=== PATIENT | female | born 1940 | race Caucasian/White ===

== ENCOUNTER 2024-08-20 18:33 | Emergency (ER) | payer MEDICARE, SELFPAY ==
[2024-08-20 18:48] VITALS: PULSE 150; O2SAT 98
[2024-08-20 18:51] VITALS: BP 162/107; PULSE 105; RESP 18; TEMP 39.4; O2SAT 92
--- NOTE | 2024-08-20 18:55 | XR_ITS ---
Examination: AP chest single view TECHNIQUE: AP portable upright chest single view Date and time: August 20, 2024, 1955 hours Comparison June 04, 2022 INDICATIONS: Coughing and fever beginning 2 days ago FINDINGS: Suspicious for early bibasilar pneumonia Mild prominence left ventricle Mildly ectatic thoracic aorta. Prominent osteopenia IMPRESSION: Suspicious for early bibasilar pneumonia
--- NOTE | 2024-08-20 18:55 | PD.EDSYNC ---
ED Syncope RME/HPI General Chief Complaint: Syncope / Near Syncope Stated Complaint: NEAR SYNCOPE Time Seen by Provider: 08/20/24 18:45 Arrival date/time: 08/20/24 18:33 RME / HPI RME / HPI narrative: Dr. Peck?s Main ED Evaluation: 84yo female with a history of dementia, CHF, HTN, aFib, DM BIBA from [facility] presents to the ED for a chief complaint of near syncope. Per EMS, patient was getting ready for dinner when she suddenly started feeling hot, dizzy, and lightheaded. Granddaughter was concerned, so she wanted the patient sent out for evaluation. EMS denies any falls, injuries or loss of consciousness. Patient denies any N/V/D, cough, runny nose or any other associated symptoms. Patient is on blood thinners, but it's unknown which one she's one. NKA. Related Data Home Medications ?Medication ?Instructions ?Recorded ?Confirmed atenolol 50 mg tablet 50 mg PO QDAY 06/04/22 06/04/22 atorvastatin 40 mg tablet 50 mg PO HS 06/04/22 06/04/22 dabigatran etexilate 110 mg 110 mg PO BID 06/04/22 06/04/22 capsule (Pradaxa) furosemide 20 mg tablet (Lasix) 20 mg PO QDAY 06/04/22 06/04/22 lisinopril 10 mg tablet 10 mg PO QDAY 06/04/22 06/04/22 methimazole 5 mg tablet 2.5 mg PO DAILY 06/04/22 06/04/22 mirtazapine 15 mg tablet (Remeron) 15 mg PO QDAY 06/04/22 06/04/22 tramadol 100 mg tablet 100 mg PO BID 06/04/22 06/04/22 Previous Rx's ?Medication ?Instructions ?Recorded acetaminophen 500 mg capsule 1,000 mg (2 x 500 mg) PO Q6H PRN 08/20/24 fever #30 caps Allergies Allergy/AdvReac Type Severity Reaction Status Date / Time No Known Allergies Allergy Verified 08/20/24 18:51 Review of Systems Review of Systems Systems Reviewed: All systems reviewed, normal except as documented Past Medical History Past Medical History NEUROLOGIC: Positive Dementia CARDIAC: Positive Cardiac Disorders, Atrial Fibrillation and Congestive Heart Failure RESPIRATORY: Negative Chronic Obstructive Pulmonary Disease (COPD) or Asthma GENITOURINARY: Negative Renal Disease ENDOCRINE: Positive Diabetes Mellitus Type 2; Negative Diabetes Mellitus Type 1 HEMATOLOGIC: Negative Sickle Cell Disease Social History SMOKING STATUS: Never smoker SUBSTANCE USE: does not use ED Exam Narrative Physical exam: GENERAL APPEARANCE: alert and oriented x 4, well-developed, well-nourished, no acute distress VITALS: All vitals were reviewed and the pulse ox is 95% on room air, which is normal according to my interpretation. HEENT: Normocephalic, atraumatic; pupils equal, round, reactive to light; EOMI; mucous membranes pink, moist; oropharynx clear NECK: Supple LUNGS: CTABL; no wheezes, no rales, no rhonchi HEART: Regular rate, regular rhythm; normal S1, S2; no murmurs ABDOMEN: non distended; normal BS; soft, no tenderness, no guarding, no rebound; no masses, no organomegaly, no hernia BACK: no CVA tenderness EXTREMITIES: atraumatic; no edema NEUROLOGIC: awake; alert and oriented x4; cranial nerves II-XII grossly intact; no focal sensory or motor deficits PSYCHIATRIC: appropriate mood and affect SKIN: warm, dry, normal color; no rashes Course Course Course Narrative: CXR is ordered for determining the etiology of fever. Quality Measures Current suspected stage: ruled out Possible source: pulmonary, genitourinary and skin/soft tissue Blood cultures ordered: yes Antibiotic ordered: Yes Pertinent labs: 08/20/24 19:42 Lactic Acid 1.6 mMol/L (0.4-2.0) Procalcitonin 0.09 ng/ml (0.0-0.49) sepsis Orders Category Date Time Status Senior Relationship Manager STAT Care 08/20/24 18:55 Active Continuous Pulse Oximetry STAT Care 08/20/24 18:55 Completed EKG (ED ONLY) *Do not use* NOW Care 08/20/24 18:55 Completed Insert IV NOW Care 08/20/24 18:55 Active NPO STAT Care 08/20/24 18:55 Active Strict Intake and Output Routine Care 08/20/24 18:55 Ordered EKG (ED Only) Stat Exams 08/20/24 18:55 Ordered XR chest 1V portable Stat Exams 08/20/24 18:55 Completed Arterial Blood Gas Stat Lab 08/20/24 20:33 Completed B-Type Natriuretic Peptide Stat Lab 08/20/24 19:42 Completed Blood Culture (Lab) Stat Lab 08/20/24 19:56 Received CBC Stat Lab 08/20/24 19:42 Completed Comprehensive Metabolic Panel Stat Lab 08/20/24 19:42 Completed LDH (Lactate Dehydrogenase) Stat Lab 08/20/24 19:42 Completed Lactate (Lactic Acid) Stat Lab 08/20/24 19:42 Completed Lipase Stat Lab 08/20/24 19:42 Completed Magnesium Stat Lab 08/20/24 19:42 Completed Partial Thromboplastin Time Stat Lab 08/20/24 19:42 Completed Phosphorous Stat Lab 08/20/24 19:42 Completed Procalcitonin Stat Lab 08/20/24 19:42 Completed Prothrombin Time with INR Stat Lab 08/20/24 19:42 Completed Troponin I Stat Lab 08/20/24 19:42 Completed Urinalysis Stat Lab 08/20/24 21:27 Completed Urine Culture Stat Lab 08/20/24 21:27 Received Acetaminophen Ivpb [Ofirmev Inj] Med 08/20/24 18:59 Discontinued 1,000 mg in 100 ml IV X1 POTASSIUM CHL 10 mEq IVPB [Kcl Ivpb] Med 08/20/24 21:17 Discontinued 10 meq in 100 ml IV Q1H Potassium Chloride [K-Dur] Med 08/20/24 21:17 Discontinued 40 meq PO X1 ONE Sodium Chloride 0.9% 1000 ml [Ns] 1,000 ml Med 08/20/24 18:57 Discontinued IV 999 mls/hr Sodium Chloride 0.9% 1000 ml [Ns] 1,000 ml Med 08/20/24 18:57 Discontinued IV 999 mls/hr cefTRIAXone/D5w 1gm IV premix [Rocephin/D5w 1gm IV Med 08/20/24 18:55 Discontinued premix] 1 gm in 50 ml IV X1 Vital Signs Vital signs: Vital Signs Temperature 103.0 F H 08/20/24 18:51 Pulse Rate 105 H 08/20/24 18:51 Respiratory Rate 18 08/20/24 18:51 Blood Pressure 162/107 H 08/20/24 18:51 Pulse Oximetry (%) 92 L 08/20/24 18:51 Oxygen Delivery Method Room Air 08/20/24 18:51 Syncope MDM Narrative MDM Narrative:: Scribe Attestation: 08/20/24 - I, Lyndsay Seht, am scribing for and in the presence of Dr. Peck. 1852: Sepsis alert initiated due to the patient being febrile at 103.0 and a HR of 105. Orders made at this time are congruent with ED Adult Sepsis Order List. Re-evaluation is to be completed. 2053: NS IVF infused. 2123: Sepsis reassessment performed consisting of lab review, vitals, physical exam including auscultation of heart, lungs, and visual evaluation of capillary refills, mucosal membranes and extremities. Patient met SIRS criteria however lactic, WBC, and pro brooke are all within normal range. Reassessment complete, patient is not septic. Patient data External records reviewed:: [facility] previous records (Per chart review, patient was admitted here on 06/03/22 for hypoxia.) Clinical information provided by:: patient and EMS Social determinants that could affect healthcare access:: housing (resides in assisted living) Patient has the following chronic illnesses:: dementia, CHF, HTN, aFib, DM How is presenting disease/condition affected by chronic disease/condition?: uneffected by Evaluation data The following diagnostics were reviewed and interpreted by me:: lab results, radiology exam(s) and EKG tracing(s) Lab and/or radiology exams considered but not ordered:: none Interpretation Summary: Bedside COVID is positive, Bedside Influenza is negative, CBC is normal, ABG is unremarkable, CMP is normal, Lactic Acid is normal, BNP is 162, Procalcitonin is normal, UA is unremarkable, according to my interpretation. CXR shows, no fractures, normal sharp diaphragmatic edge, tortuous trachea, no infiltrates, according to my interpretation. EKG done at 1928, aFib, rate of 102, left axis deviation, T wave inversions in V3-V6, Q waves in V1-V3, no STEMI, according to my interpretation. Medications / Prescriptions Medications or Prescriptions considered but not ordered:: none Medication administrations:: Medication Administration History Discontinued Medications Ceftriaxone Sodium/Dextrose (Rocephin/D5w 1gm Iv Premix) 1 gm in 50 mls @ 100 mls/hr IV X1 ONE Stop: 08/20/24 19:24 Last Infusion: 08/20/24 20:45 Dose: Infused Documented By: Admin: 08/20/24 20:12 Dose: 100 mls/hr Documented By: ALO Sodium Chloride (Ns) 1,000 mls @ 999 mls/hr IV .Q1H1M ONE Stop: 08/20/24 19:57 Last Infusion: 08/20/24 20:54 Dose: Infused Documented By: Admin: 08/20/24 19:51 Dose: 999 mls/hr Documented By: EE Sodium Chloride (Ns) 1,000 mls @ 999 mls/hr IV .Q1H1M ONE Stop: 08/20/24 19:57 Last Infusion: 08/20/24 20:54 Dose: Infused Documented By: Admin: 08/20/24 19:51 Dose: 999 mls/hr Documented By: EE Acetaminophen (Ofirmev Inj) 1,000 mg in 100 mls @ 250 mls/hr IV X1 ONE Stop: 08/20/24 19:22 Last Infusion: 08/20/24 20:16 Dose: Infused Documented By: Admin: 08/20/24 19:46 Dose: 250 mls/hr Documented By: EE Potassium Chloride (Kcl Ivpb) 10 meq in 100 mls @ 100 mls/hr IV Q1H [place] Stop: 08/20/24 23:16 Last Admin: 08/20/24 21:20 Dose: Not Given Documented By: GB Non-Admin Reason: Wrong Patient Potassium Chloride (Potassium Chloride 20 Meq Tabcr) 40 meq PO X1 ONE Stop: 08/20/24 21:18 Last Admin: 08/20/24 21:20 Dose: Not Given Documented By: SKYLER Non-Admin Reason: Wrong Patient see above Consultations Consultation(s) initiated? (list below): No Diagnosis Syncope Differential Diagnosis: other (UTI, pneumonia, cellulitis, sepsis, septic shock, severe sepsis, viral illness) Most likely diagnosis given after review of the tests above:: see clinical impression below Admission Indicated Admission indicated?: not indicated Admission Request Was there a request for admission?: No Disposition Plan Disposition Plan: Discharge Discharge Attestation Discharge Attestation: The patient and all family members were given an opportunity to ask questions and understood the discharge instructions. Discharge instructions specifically effects, indications for sooner follow up or return to the emergency department, and the expected course of current diagnosis. Patient condition: Stable Critical Care Time Critical Care Time Critical Care Time: Yes Total Critical Care Time (min.): 35 Attestation: The high probability of sudden, clinically significant deterioration in the patient?s condition required the highest level of my preparedness to intervene urgently. The services I provided to this patient were to treat and/or prevent clinically significant deterioration. Services included the following: chart data review, reviewing nursing notes and/or old charts, documentation time, presales consultant collaboration regarding findings and treatment options, medication orders and management, direct patient care, vital sign assessments and ordering, interpreting and reviewing diagnostic studies and lab tests. Aggregate critical care time includes only time during which I was engaged in work directly related to the patient?s care, as described above, whether at bedside or elsewhere in the Emergency Department. It did not include time spent performing other reported procedures or the services of residents, students, nurses or physician assistants. Discharge Plan Plan Patient Disposition: Xfer Skilled Nsg Fac (SNF) Discharge Disposition comment: Stable for discharge to [facility] Patient condition on transfer: Stable Prescriptions/Referrals Prescriptions/Med Rec: New acetaminophen 500 mg capsule 1,000 mg PO Q6H PRN (Reason: fever) Qty: 30 0RF No Action atorvastatin 40 mg Tablet 50 mg PO HS lisinopril 10 mg Tablet 10 mg PO QDAY methimazole [Tapazole] 5 mg Tablet 2.5 mg PO DAILY furosemide [Lasix] 20 mg Tablet 20 mg PO QDAY mirtazapine [Remeron] 15 mg Tablet 15 mg PO QDAY atenolol 50 mg Tablet 50 mg PO QDAY tramadol 100 mg Tablet 100 mg PO BID Pradaxa 110 mg Capsule 110 mg PO BID Referrals: [facility] [Provider Group] - In 1 week Problem List Clinical Impression: Upper respiratory infection, viral, Infection due to COVID-19 virus WHO Omicron variant Patient/Caregiver Discharge Instructions Discharge Activity: activity as tolerated Education Materials: ED URI, Viral, No Abx (Adult) Additional Instructions: Your fever here in the emergency department tonight is due to a COVID/omicron infection. As per the CDC you do not need to self isolate, wear a face mask, or take any special medicines. You should take acetaminophen for fevers. Please return to the emergency department if you have any worsening or any further medical problems. Otherwise you should follow-up with your primary care doctor or in the [facility] clinic within the next several days There is a prescription for acetaminophen waiting for you at the pharmacy. You can take up to 2 tabs every 6 hours for fever. Print Language: Taiwanese Stand Alone Forms: Brandi Award Info., Patient Portal Info Letter
[2024-08-20] MEDS: ACETAMINOPHEN IVPB 1,000 MG/100 ML VIAL 250 MG IV (19:46)
[2024-08-20 19:50] VITALS: BP 167/106; PULSE 98; RESP 20; O2SAT 94
[2024-08-20] MEDS: SODIUM CHLORIDE 0.9% 1000 ML 1,000 ML 999 ML IV ×2 (19:51)
[2024-08-20 20:03] LABS: Lactate (Lactic Acid) 1.6 mMol/L (0.4-2.0)
[2024-08-20 20:04] LABS: Basophils % (Auto) 0 % (0-2.5); Eosinophils % (Auto) 0 % (0-10); Hematocrit 39.2 % (36.0-46.0); Hemoglobin 12.3 g/dL (12.0-16.0); Immature Granulocytes % (Auto) 0 % (0-0); Immature Granulocytes Auto 0.03 Thou/mm3 (0.00-0.00); Lymphocytes # (Auto) 0.5 Thou/mm3 (1.0-4.8); Lymphocytes % (Auto) 6 % (10-50); Mean Corpuscular HGB Conc 31.4 g/dl (31.0-37.0); Mean Corpuscular Hemoglobin 30.1 pg (25.0-35.0); Mean Corpuscular Volume 96 fL (80-100); Monocytes # (Auto) 0.4 Thou/mm3 (0.0-0.8); Monocytes % (Auto) 4 % (0-12); Neutrophils % (Auto) 88 % (37-80); Nucleated Red Blood Cell % 0 /100 WBC (0); Platelet Count 182 Thou/mm3 (140-440); RDW Standard Deviation 48.5 fL (36.4-46.3); Red Blood Count 4.09 Miln/mm3 (4.00-5.20); White Blood Count 7.9 Thou/mm3 (3.6-11.0)
[2024-08-20] MEDS: cefTRIAXone/D5w 1gm IV premix 1 GM/50 ML BAG IV (20:12)
[2024-08-20 20:24] LABS: B-Type Natriuretic Peptide 162 pg/mL (0-100)
[2024-08-20 20:30] LABS: INR 1.4 (0.9-1.3); Prothrombin Time 14.6 Seconds (9.0-12.2)
[2024-08-20 20:42] LABS: Base Excess -4 (-3-3); HCO3 22 mEq/L (20-26); Inspired Oxygen, FIO2 21 %; O2 Saturation 93 % (91-98); PCO2 39 mmHg (32.0-48.0); PO2 69 mmHg (83-108); pH, Arterial 7.35 (7.35-7.45)
[2024-08-20 20:43] LABS: Allen Test Performed/OK; Puncture Site Right Radial
[2024-08-20 20:44] LABS: Alanine Aminotransferase 10 U/L (10-49); Albumin, Serum 4.5 gm/dL (3.4-4.8); Albumin/Globulin Ratio 1.9 (1.2-2.2); Alkaline Phosphatase 95 U/L (46-116); Anion Gap 9 (7-16); Aspartate Amino Transferase 16 U/L (0-34); BUN/Creatinine Ratio 10 Ratio (12-20); Bilirubin,Total 0.6 mg/dL (0.3-1.2); Blood Urea Nitrogen 9 mg/dL (9-23); Calcium 9.4 mg/dL (8.3-10.6); Calcium (Corrected) 9.4 mg/dL (8.5-10.1); Carbon Dioxide 24.1 mMol/L (20.0-31.0); Chloride 106 mMol/L (98-107); Creatinine (Component) 0.9 mg/dL (0.6-1.3); Globulin 2.4 gm/dL (2.3-3.5); Glucose 133 mg/dL (74-106); LDH (Lactate Dehydrogenase) 196 U/L (120-246); Lipase 28 U/L (12-53); Magnesium 1.9 mg/dL (1.6-2.6); Osmolality,Calculated 278 (275-295); Phosphorous 3.6 mg/dL (2.4-5.1); Potassium 4.2 mMol/L (3.4-5.1); Procalcitonin 0.09 ng/ml (0.0-0.49); Sodium 139 mMol/L (136-145); Total Protein 6.9 gm/dL (5.7-8.2); Troponin I 0.024 ng/mL (0.0-0.045); eGFR > 60 See Note
[2024-08-20 20:47] VITALS: BP 196/104; PULSE 89; RESP 17; TEMP 37.4; O2SAT 95
[2024-08-20 21:52] LABS: Collection Type, Urine Clean Catch; WBC,Urine 0 /hpf (0-5)
[2024-08-20 22:23] LABS: Bacteria,Urine Rare; Bilirubin,Urine Negative (Negative); Blood,Urine Trace (Negative); Clarity,Urine Clear (Clear/Hazy); Color,Urine Colorless (Lt Yel-Yel); Glucose, Urine Negative (Negative); Ketones,Urine Negative (Negative); Leukocyte Esterase,Urine Negative (Negative); Nitrite,Urine Negative (Negative); PH,Urine 6.5 (5.0-7.0); Protein,Urine Negative (Neg - Trace); RBC,Urine 2 /hpf (0-3); Squamous Epithelial Cell,Urine < 1 /hpf (0-5); Urobilinogen,Urine Negative mg/dL (0.0-1.0)
[2024-08-21 00:37] VITALS: BP 174/98; PULSE 89; RESP 18; TEMP 36.8; O2SAT 95
== END 2024-08-21 00:45 | disposition skilled nursing facility (03) ==
LOC: SERX 08-21 02:28
PROVIDERS: Emergency Provider Emergency Medicine
DX: U07.1 COVID-19 (principal); I48.91 Unspecified atrial fibrillation; Z79.01 Long term (current) use of anticoagulants
CPT/HCPCS: 36415; 36600; 71045; 80053; 81001; 82803; 83605; 83615; 83690; 83735; 83880; 84100; 84145; 84484; 85025; 85610; 85730; 87040; 87086; 87400; 87811; 93005; 96365; 96367; 99284; J0131; J0696; J7030